=== PATIENT | female | born 1995 | race American Indian/Alaskan Native ===

== ENCOUNTER → 2024-07-25 | Outpatient (CLI) | payer OTHER, SELFPAY ==
[2024-07-25 18:09] LABS: HCG,Qualitative Serum Positive
[2024-07-25 19:02] LABS: Beta HCG,Quantitative 100746 mIU/mL (<5.0)
== END | disposition home or self-care (01) ==
LOC: COPL 17:03
PROVIDERS: PCP Nurse Practitioner Family; Referring Provider Nurse Practitioner Family; Visit Provider Nurse Practitioner Family
DX: N92.1 Excessive and frequent menstruation with irregular cycle (principal)
CPT/HCPCS: 36415; 84702; 84703